=== PATIENT | male | born 1995 | race Two or more races ===

== ENCOUNTER 2022-10-31 21:32 | Emergency (ER) | payer OTHER ==
[~2022-10-31] VITALS: Ht 185.4 cm; Wt 76.0 kg
[2022-10-31 21:32] VITALS: BP 123/68
[2022-10-31 21:55] LABS: Basophils # (auto) 0.1 10 ^3/uL (0-0.2); Basophils % (auto) 0.7 % (0.0-2.0); Eosinophils # (auto) 0.1 10 ^3/uL (0-0.8); Eosinophils % (auto) 1.1 % (0.0-7.0); Hematocrit 43.4 % (41.0-53.0); Lymphocytes # (auto) 2.9 10 ^3/uL (0.4-5.4); Mean Corpuscular Hemoglobin 30.3 pg (28.0-32.0); Mean Corpuscular Hgb Conc. 34.6 g/dL (32.0-36.0); Mean Corpuscular Volume 87.6 fL (80.0-100.0); Monocytes # (auto) 0.5 10 ^3/uL (0-1.3); Monocytes % (auto) 4.8 % (0.0-12.0); Neutrophils # (auto) 6.2 10 ^3/uL (1.6-8.6); Neutrophils % (auto) 63.4 % (37.0-80.0); Red Blood Cells 4.95 10^6/uL (4.5-5.90); Red Cell Distribution Width 12.8 % (11.8-14.3); White Blood Cell 9.7 10^3/uL (4.4-10.8)
[2022-10-31 22:07] LABS: Albumin 4.5 g/dL (3.4-5.0); BUN/Creatinine Ratio 9.5; Calcium 9.8 mg/dL (8.5-10.1); Magnesium 2.2 mg/dL (1.6-2.6)
[2022-10-31 22:09] LABS: Bilirubin, Total 0.8 mg/dL (0.2-1.0)
[2022-10-31 22:15] LABS: INR 1.01 (0.9-1.15)
== END 2022-11-01 02:52 | disposition left against medical advice (07) ==
LOC: ER 21:35
DX: M94.0 Chondrocostal junction syndrome [Tietze] (principal); F12.90 Cannabis use, unspecified, uncomplicated
CPT/HCPCS: 36415; 71045; 80053; 83735; 83880; 84484; 85025; 85610; 85730; 93005

== ENCOUNTER 2024-07-22 02:55 | Emergency (ER) | payer OTHER ==
[~2024-07-22] VITALS: Ht 185.4 cm; Wt 84.7 kg
[2024-07-22] MEDS: FLUORESCEIN SOD OPTH TEST STRIP LEFTEYE ONE (04:00)
[2024-07-22] MEDS: TETRACAINE HCL 0.5% OPTH(EYE) SOLN 4ML LEFTEYE ONE (04:00)
[2024-07-22 04:05] VITALS: BP 114/73; PULSE 67; RESP 19; TEMP 98.2; O2SAT 99
[2024-07-22] MEDS ORDERED: MOXI0.5S3 LEFTEYE (04:10)
[2024-07-22] MEDS: SODIUM CHLORIDE 0.9% 500 ML IV ONE (04:11)
== END 2024-07-22 04:57 | disposition home or self-care (01) ==
LOC: ER 02:55
DX: S05.02XA Injury of conjunctiva and corneal abrasion without foreign body, left eye, initial encounter (principal); X58.XXXA Exposure to other specified factors, initial encounter; Y93.89 Activity, other specified; Y92.89 Other specified places as the place of occurrence of the external cause; Y99.8 Other external cause status
CPT/HCPCS: 96360; 99283; J7040

== ENCOUNTER 2025-01-08 11:26 | Emergency (ER) | payer OTHER ==
[~2025-01-08] VITALS: Ht 185.4 cm; Wt 85.9 kg
[~2025-01-08 11:26] MED LIST: MOXI0.5S3 LEFTEYE
[2025-01-08 12:51] VITALS: BP 143/84; PULSE 94; RESP 18; TEMP 98.1; O2SAT 98
[2025-01-08] MEDS ORDERED: PSEU120T18 PO (13:06)
[2025-01-08] MEDS ORDERED: AUG875T PO (13:06)
--- NOTE | 2025-01-08 13:06 | ED.PDOC ---
SOB-HPI HPI Comments 29-year-old male presents for sinus frontal sinus pressure sore throat and metallic taste in her mouth for 10 days. Unable to get adequate relief with [id number] cough and cold medications. Denies any red flags Chief Complaint: Flu like Time Seen by MD: 11:47 Reviewed notes: Nurses Notes, Medications, Allergies Information Source: Patient Past Medical History PAST MEDICAL HISTORY: Denies Surgical History: Denies all surgeries Family History Family History: Reviewed,noncontributory to illness Social History Smoker: Non-Smoker Alcohol: Denies ETOH Use Drugs: Marijuana Lives In: Home All Other Systems: Reviewed and Negative (per hpi) Physical Exam General Appearance: No Apparent Distress, Normal HEENT: Normal ENT Inspection, Pharynx Normal, TMs Normal, Other (Frontal TTP) Neck: Full Range of Motion, Non-Tender, Normal, Normal Inspection Respiratory: Chest Non-Tender, Lungs Clear, No Accessory Muscle Use, No Respiratory Distress, Normal Breath Sounds Cardiovascular: No Edema, No JVD, No Murmur, No Gallop, Normal Peripheral Pulses, Regular Rate/Rhythm Breast Exam: Deferred Gastrointestinal: No Organomegaly, Non Tender, No Pulsatile Mass, Normal Bowel Sounds, Soft Genitalia: Deferred Pelvic: Deferred Rectal: Deferred Extremities: No calf tenderness, Normal capillary refill, Normal inspection, Normal range of motion, Non-tender, No pedal edema Musculoskeletal : Apperance: Normal Neurologic: Alert, scanner operator II-XII nml as Tested, No Motor Deficits, Normal Affect, Normal Mood, No Sensory Deficits Cerebellar Function: Normal Reflexes: Normal Skin: Dry, Normal Color, Warm Lymphatic: No Adenopathy Was a procedure done? Was a procedure done?: No Differential Dx Differential Diagnosis: Sinusitis X-Ray, Labs, Meds, VS Vital Signs Date Time Temp Pulse Resp B/P (MAP) Pulse Ox O2 Delivery O2 Flow Rate FiO2 01/08/25 12:51 98.1 94 18 143/84 (103) 98 98.1 01/08/25 12:51 94 18 98 Room Air 01/08/25 11:36 98.1 94 18 143/84 (103) 98 98.1 X-Ray, Labs, Meds, VS Comment Differential considered but not limited to frontal headache, migraine, URI. Patient is not immunocompromised, they are non-toxic, there are no high fevers and do not present with an intractable headache, During the physical exam there was TTP over the frontal and maxillary sinuses consistent with sinusitis therefore routine imaging such as CT was deferred during this visit. Prescribed antibiotics for presentation of symptoms. Complete course of antibiotic therapy even if symptoms improve or resolve. There should be no leftover antibiotics as this can lead to antibiotic resistant bacteria and even worse infection. Potential side effects discussed including abdominal pain, nausea, diarrhea. Also recommend antihistamines, decongestants and antipyretics as needed. Time of 1ST Reevaluation: 13:00 Reevaluation 1ST: Improved Patient Education/Counseling: Diagnosis, Treatment Family Education/Counseling: Diagnosis, Treatment Departure 1 Departure Time of Disposition: 13:05 Impression: Primary Impression: Sinusitis Qualified Codes: J01.10 - Acute frontal sinusitis, unspecified Disposition: HOME / SELF CARE / HOMELESS Condition: Stable e-Prescriptions Benzonatate (Benzonatate) 100 Mg Cap 1 CAP PO TID for 10 Days, #30 CAP 0 Refills Prov: ERIN SAHU NP 01/08/25 Pseudoephedrine-Guaifenesin (Mucinex D) 1 Tab Tab 1 TAB PO BID for 10 Days, #20 TAB 0 Refills Prov: ERIN SAHU NP 01/08/25 Amoxicillin & Pot Clavulanate (AUGMENTIN TABLET) 875 Mg Tb 875 MG PO BID for 7 Days, #14 TAB 0 Refills Prov: ERIN SAHU NP 01/08/25 Critical Care Note Critical Care Time?: No Stability Stability form required: No Heart Score Heart Score: Heart Score Response (Comments) Value History N/A 0 EKG N/A 0 Age N/A 0 Risk Factors N/A 0 Troponin N/A 0 Total 0 ERIN SAHU NP Jan 08, 2025 13:06
[2025-01-08] MEDS ORDERED: BENZ100C97 PO (13:07)
== END 2025-01-08 13:11 | disposition home or self-care (01) ==
LOC: ER 11:26
DX: J32.9 Chronic sinusitis, unspecified (principal)

== ENCOUNTER 2025-07-31 15:09 | Emergency (ER) | payer OTHER ==
[~2025-07-31] VITALS: Ht 185.4 cm; Wt 86.5 kg
[~2025-07-31 15:09] MED LIST changes: +AUG875T PO; +BENZ100C97 PO; +PSEU120T18 PO
[2025-07-31] MEDS ORDERED: KETO2CRE4 TOP (16:31)
--- NOTE | 2025-07-31 16:32 | ED.PDOC ---
General HPI Comments A 30 YEAR OLD MALE PRESENTS TO THE ED WITH COMPLAINT OF PENILE REDNESS. PATIENT STATES HE HAS BEEN EXPERIENCING PENILE REDNESS AND IRRITATION FOR THE PAST 2 DAYS. PATIENT NOTES HE IS UNCIRCUMCISED. PATIENT DENIES DYSURIA, HEMATURIA, PENILE DISCHARGE, FEVER, CHILLS, SHORTNESS OF BREATH, CHEST PAIN, ABDOMINAL PAIN, NAUSEA, VOMITING, HEADACHE, OR OTHER COMPLAINTS. NO OTHER SYMPTOMS OR MODIFYING FACTORS AT THIS TIME. PATIENT IS ALERT, ORIENTED X 4, AND HAS STEADY GAIT. Chief Complaint: Penile Problem Time Seen by MD: 15:22 Primary Care Provider: NONE Reviewed notes: Nurses Notes, Medications, Allergies Allergies: Coded Allergies: NO KNOWN ALLERGIES (Unverified , 10/31/22) Home Meds Active Scripts Ketoconazole (Ketoconazole) 2 % Cre, 1 APPLIC TOP BID, #30 GRAMS Prov:ADILIA TORREZ PA 07/31/25 Benzonatate (Benzonatate) 100 Mg Cap, 1 CAP PO TID for 10 Days, #30 CAP 0 Refills Prov:ERIN SAHU NP 01/08/25 Pseudoephedrine-Guaifenesin (Mucinex D) 1 Tab Tab, 1 TAB PO BID for 10 Days, #20 TAB 0 Refills Prov:ERIN SAHU NP 01/08/25 Amoxicillin & Pot Clavulanate (AUGMENTIN TABLET) 875 Mg Tb, 875 MG PO BID for 7 Days, #14 TAB 0 Refills Prov:ERIN SAHU RETINAL SURGEON 01/08/25 Moxifloxacin Hydrochloride (Moxifloxacin HCl) 0.5 % Zenaida, 1 DROP LEFTEYE TID for 7 Days, #2 ML Prov:ASHLEE RUBY 07/22/24 Information Source: Patient Mode of Arrival: Ambulatory Severity: Moderate Inability to void: None Timing: Days Duration: Since onset, Days Prehospital treatment: None Onset: Spontaneous Symptoms: Other (PENILE IRRITATION AND REDNESS) History of: None Location: None Penile discharge: None Modifying factors: None associated signs and symptoms: None Past Medical History PAST MEDICAL HISTORY: Denies Surgical History: Denies all surgeries Family History Family History: Reviewed,noncontributory to illness Social History Smoker: Non-Smoker Alcohol: Denies ETOH Use Drugs: Marijuana Lives In: Home Constitutional: denies: chills, diaphoresis, fatigue, fever, malaise, sweats, weakness, others EENTM: denies: blurred vision, double vision, ear bleeding, ear discharge, ear drainage, ear pain, ear ringing, eye pain, eye redness, hearing loss, mouth pain, mouth swelling, nasal discharge, nose bleeding, nose congestion, nose pain, photophobia, tearing, throat pain, throat swelling, voice changes, others Respiratory: denies: cough, hemoptysis, orthopnea, SOB at rest, shortness of breath, SOB with excertion, stridor, wheezing, others Cardiovascular: denies: chest pain, dizzy spells, diaphoresis, Dyspnea on exertion, edema, irregular heart beat, left arm pain, lightheadedness, palpitations, PND, syncope, others Gastrointestinal: denies: abdomen distended, abdominal pain, blood streaked bowels, constipated, diarrhea, dysphagia, difficulty swallowing, hematemesis, melena, nausea, poor appetite, poor fluid intake, rectal bleeding, rectal pain, vomiting, others Genitourinary: reports: penile sore, others (PENILE REDNESS AND IRRITATION); denies: burning, dysuria, flank pain, frequency, hematuria, incontinence, penile discharge, pain, testicle pain, testicle swelling, urgency Neurological: denies: dizziness, fainting, headache, left sided numbness, left sided weakness, numbness, paresthesia, pre-existing deficit, right sided numbness, right sided weakness, seizure, speech problems, tingling, tremors, weakness, others Musculoskeletal: denies: back pain, gout, joint pain, joint swelling, muscle pain, muscle stiffness, neck pain, others Integumetry: denies: bruises, change in color, change in hair/nails, dryness, laceration, lesions, lumps, rash, wounds, others Allergic/Immunocompromised: denies: Difficulty Healing, Frequent Infections, Hives, Itching, others Hematologic/Lymphatic: denies: anemia, blood clots, easy bleeding, easy bruising, swollen glands, others Endocrine: denies: excessive hunger, excessive sweating, excessive thirst, excessive urination, flushing, intolerance to cold, intolerance to heat, unexplained weight gain, unexplained weight loss, others Psychiatric: denies: anxiety, bipolar disorder, depression, hopeless, panic disorder, schizophrenia, sleepless, suicidal, others All Other Systems: Reviewed and Negative Physical Exam General Appearance: No Apparent Distress, Normal HEENT: Normal ENT Inspection, PERRL/EOMI, Pharynx Normal, TMs Normal Neck: Full Range of Motion, Non-Tender, Normal, Normal Inspection Respiratory: Chest Non-Tender, Lungs Clear, No Accessory Muscle Use, No Respiratory Distress, Normal Breath Sounds Cardiovascular: No Edema, No JVD, No Murmur, No Gallop, Normal Peripheral Pulses, Regular Rate/Rhythm Breast Exam: Deferred Gastrointestinal: No Organomegaly, Non Tender, No Pulsatile Mass, Normal Bowel Sounds, Soft Genitalia: Penis (UNCIRCUMCISED PENIS WITH MILD LOCALIZED REDNESS AND WHITE SKIN RASH, NO SWELLING AND PENILE DISCHARGE. ) Pelvic: Normal External Exam Rectal: Deferred Extremities: No calf tenderness, Normal capillary refill, Normal inspection, Normal range of motion, Non-tender, No pedal edema Musculoskeletal : Apperance: Normal Neurologic: Alert, pharmaceutical process engineer II-XII nml as Tested, No Motor Deficits, Normal Affect, Normal Mood, No Sensory Deficits Cerebellar Function: Normal Reflexes: Normal Skin: Dry, Normal Color, Warm Peripheral Pulses: 2+ carotid (R), 2+ carotid (L) Lymphatic: No Adenopathy Was a procedure done? Was a procedure done?: No Differential Diagnosis Kidney stone (Female): N/A Kidney stone (Male): N/A Penile/Scrotal: Other (BALANITIS, SOFT TISSUE INFECTION, CONTACT DERMATITIS) Urinary Problem (Male): N/A Urinary Problem (Female): N/A X-Ray, Labs, Meds, VS Vital Signs Date Time Temp Pulse Resp B/P (MAP) Pulse Ox O2 Delivery O2 Flow Rate FiO2 07/31/25 16:36 98.4 96 16 132/93 (106) 99 98.4 07/31/25 16:36 96 16 99 Room Air 07/31/25 15:11 98.4 96 16 132/93 99 98.4 X-Ray, Labs, Meds, VS Comment EXTERNAL MEDICAL RECORDS REVIEWED: [NONE] INDEPENDENT HISTORIANS: [NONE] SOCIAL DETERMINANTS OF HEALTH: [NONE] LABS ORDERED: NONE REVIEWED AND INTERPRETED RESULTS: NONE IMAGING ORDERED: NONE TREATMENTS ORDERED: NONE PROCEDURES PERFORMED: NONE CRITICAL CARE TIME: NONE I HAVE DISCUSSED THE PATIENT WITH THE ATTENDING PHYSICIAN DR. SOLIS AND HE AGREES WITH THE PATIENT'S PLAN OF CARE AND DISPOSITION. BASED ON HISTORY OF PRESENT ILLNESS, AND PHYSICAL EXAM, PATIENT WILL BE DISCH ARGED HOME. DISCUSSED PLAN FOR DISCHARGE HOME WITH RX [NIZORAL CREAM]. MEDICATION WARNINGS GIVEN. SHARED DECISION MAKING: PATIENT INSTRUCTED TO FOLLOW UP WITH PRIMARY CARE PROVIDER IN 1-2 DAYS FOR RE-EVALUATION OF SYMPTOMS. PATIENT VERBALIZES UNDERSTANDING TO RETURN TO ED FOR NEW OR WORSENING SYMPTOMS OR IF FOLLOW UP WITH PCP CANNOT BE OBTAINED. PATIENT FEELS COMFORTABLE GOING HOME AT THIS TIME. ALL QUESTIONS ADDRESSED AT TIME OF DISCHARGE. Time of 1ST Reevaluation: 16:54 Reevaluation 1ST: Improved Patient Education/Counseling: Diagnosis, Treatment, Need For Follow Up Family Education/Counseling: Diagnosis, Treatment, Need For Follow Up Medical Screening: No EMC Exist At This Time SEPSIS Sepsis Screen Date sepsis recognized/suspect: Jul 31, 2025 Time Sepsis recognized/suspect: 1513 Recent Procedure: No On Antibiotic Therapy: No Respiratory Rate >20: No Heart Rate >90: No Temp<36 C (96.8 F) or >38.3 C: No SBP <90 or MAP <65 mmHG: No New Acute Mental Status Change: No Is the patient on CPAP, BIPAP,: No Vital Signs Date Time Temp Pulse Resp B/P (MAP) Pulse Ox O2 Delivery O2 Flow Rate FiO2 07/31/25 16:36 98.4 96 16 132/93 (106) 99 98.4 07/31/25 16:36 96 16 99 Room Air 07/31/25 15:11 98.4 96 16 132/93 99 98.4 Departure 1 Departure Time of Disposition: 16:54 Impression: Primary Impression: Balanitis Disposition: 01 HOME / SELF CARE / HOMELESS Condition: Stable Additional Instructions: FOLLOW-UP WITH PCP IN 1 TO 2 DAYS. TAKE MEDICATIONS PRESCRIBED. RETURN TO ED FOR ANY NEW OR WORSENING SYMPTOMS. e-Prescriptions Ketoconazole (Ketoconazole) 2 % Cre 1 APPLIC TOP BID, #30 GRAMS Prov: ADILIA TORREZ 07/31/25 Discharged With: Self Critical Care Note Critical Care Time?: No Stability Stability form required: No I personally scribed for ADILIA TORREZ ([email or web address]) on 07/31/25 at 16:32. Electronically submitted by Jackson Yung ([email or web address]). ADILIA TORREZ Jul 31, 2025 16:32
[2025-07-31 16:36] VITALS: BP 132/93; PULSE 96; RESP 16; TEMP 98.4; O2SAT 99
== END 2025-07-31 16:36 | disposition home or self-care (01) ==
LOC: ER 15:16
DX: N48.1 Balanitis (principal); F12.90 Cannabis use, unspecified, uncomplicated; Z79.899 Other long term (current) drug therapy